=== PATIENT | male | born 1965 | race Caucasian/White ===

== ENCOUNTER 2019-09-22 06:00 | Outpatient (RCR) | payer SELFPAY | END 2019-10-22 00:01 | LOC: SPT 06:00 | PROVIDERS: Visit Provider Orthopaedic Surgery Sports Medicine | DX: Z47.89 Encounter for other orthopedic aftercare (principal) | CPT/HCPCS: 97110 ×3 ==

== ENCOUNTER 2019-10-23 06:00 | Outpatient (RCR) | payer SELFPAY | END 2019-11-22 23:59 | disposition home or self-care (01) | LOC: SPT 06:00 | PROVIDERS: Visit Provider Orthopaedic Surgery Sports Medicine | DX: Z47.89 Encounter for other orthopedic aftercare (principal) | CPT/HCPCS: 97110 ==

== ENCOUNTER 2019-11-23 06:00 | Outpatient (RCR) | payer SELFPAY | END 2019-12-13 09:44 | disposition home or self-care (01) | LOC: SPT 06:00 | PROVIDERS: Visit Provider Orthopaedic Surgery Sports Medicine | DX: M25.611 Stiffness of right shoulder, not elsewhere classified (principal); M25.511 Pain in right shoulder; S46.001D Unspecified injury of muscle(s) and tendon(s) of the rotator cuff of right shoulder, subsequent encounter; X58.XXXD Exposure to other specified factors, subsequent encounter | CPT/HCPCS: 97110 ==

== ENCOUNTER 2021-02-16 08:56 | Outpatient (CLI) | payer OTHER, SELFPAY ==
--- NOTE | 2021-02-16 09:30 | MR_ITS ---
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 TECHNIQUE: Sagittal and axial multisequence imaging is submitted. Mild thoracolumbar scoliosis. Slight increase in thoracic kyphosis. T9 hemangioma. Posterior lumbar alignment is normal. Fat replacement along the L4 and L5 endplates. Mild disc space narrowing throughout with small endplate osteophytes. Conus terminates normally at T12-L1. L1-L2: Mild osteophytic ridging and annular disc bulging. Shallow LEFT paracentral disc protrusion wi th annular fissure causing mild encroachment upon the subarticular recess. No significant stenosis. L2-L3: Mild annular disc bulging and osteophytic ridging. Shallow central disc protrusion encroaching upon the ventral thecal sac. There is mild central canal, bilateral subarticular recess and foramina l stenosis. L3-L4: Moderate annular disc bulging and osteophytic ridging with marked ligamentum flavum arthritis. Facet joints demonstrate moderate atherosclerosis. There is encroachment into the thecal sac. Modera te central, bilateral subarticular recess and mild bilateral foraminal stenosis. L4-L5: Severe annular disc bulging with osteophytic ridging. There is a large disc protrusion LEFT pa racentral extending into the LEFT foramen causing significant posterior displacement and deformity of the thecal sac and the nerve roots. Nerve roots are obliterated and poorly visualized due to signifi cant disc disease. There is also moderate facet joint arthritis. Severe central, LEFT lateral recess and severe bilateral subarticular recess stenosis and mild bilateral foraminal stenosis. L5-S1: Mild broad-based disc bulging. Near contact on the S1 nerve roots. MR/MR lumbar spine wo con* [id number] IMPRESSION: 1. Severe central, LEFT lateral recess and bilateral subarticular recess steno sis at L4-5. There is a large LEFT paracentral disc protrusion extending into t he lateral recess and foramen. Significant deformity and displacement of the th ecal sac and the LEFT L5 nerve root. 2. Moderate central, bilateral subarticular recess and mild foraminal stenosis at L3-4. 3. Mild central, bilateral subarticular recess and foraminal stenosis at L2-3.
== END 2021-02-16 08:57 | disposition home or self-care (01) ==
PROVIDERS: PCP Nurse Practitioner Family; Visit Provider Nurse Practitioner Family
DX: M54.42 Lumbago with sciatica, left side (principal); M48.061 Spinal stenosis, lumbar region without neurogenic claudication; M51.26 Other intervertebral disc displacement, lumbar region
CPT/HCPCS: 72148

== ENCOUNTER 2022-03-02 13:08 | Outpatient (CLI) | payer OTHER, SELFPAY ==
--- NOTE | 2022-03-02 13:46 | MR_ITS ---
WS: [id number] MRI HEAD WITHOUT CONTRAST TECHNIQUE: Sagittal T1, T2 axial, T2 axial FLAIR, axial and coronal T1 images, axial susceptibility w eighted imaging, axial diffusion weighted images, and coronal T2 images were obtained. CLINICAL INFORMATION: NUMBNESS OF L HAND COMPARISON: None. FINDINGS: No evidence restricted diffusion to suggest acute ischemia. Ventricular system and basal cisterns are patent. Mild small vessel changes. No significant parenchymal volume loss. Normal posterior fossa. N ormal vascular flow voids at the skull base. No extra axial fluid collections. No evidence of mass or mass effect. Small retention cyst RIGHT maxillary sinus. Mastoid air cells are well aerated. Visualized orbits are normal. 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 Small amount of surrounding gliosis. No mass effect. No hemosiderin on susceptibly weighted images. Normal optic chiasm and pituitary infundibulum. Tempor al lobes and hippocampal formations are normal in appearance. MR/MR head wo con* [id number] IMPRESSION: 1. No evidence of restricted diffusion to suggest acute ischemia. 2. Minimal small vessel changes. No significant parenchymal line loss. 3. 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 Small amount of surrounding gliosis. 4. Small retention cyst RIGHT maxillary sinus. 5. No other significant findings.
== END 2022-03-02 13:09 | disposition home or self-care (01) ==
LOC: RAD 13:12
PROVIDERS: PCP Nurse Practitioner Family; Visit Provider Nurse Practitioner Family
DX: R20.0 Anesthesia of skin (principal); J34.1 Cyst and mucocele of nose and nasal sinus; G93.0 Cerebral cysts
CPT/HCPCS: 70551

== ENCOUNTER 2022-06-16 08:22 | Outpatient (CLI) | payer OTHER, SELFPAY ==
--- NOTE | 2022-06-16 09:15 | MR_ITS ---
WS: [id number] MRA ANGIOGRAPHY [place] OF [place] HISTORY: R29.90 - Unspecified symptoms and signs involving the nervous system. COMPARISON: None available. TECHNIQUE: 3-D MR angiography is performed of the [place] of [place]. All images are reviewed including source images. Distal vertebral and basilar arteries are intact with no significant stenosis or plaque. Posterior ce rebral arteries are normal course and caliber. Posterior communicating arteries are very small calibe r and difficult to visualize. Hypoplastic posterior communicating arteries is a normal variant. Intracranial portion of the internal carotid arteries are normal course and caliber. No significant a therosclerosis, stenosis or aneurysm identified. Middle and anterior cerebral arteries are both paten t with no significant disease. Anterior communicating artery is also normal. Cystic lesion in the LEFT basal ganglia is reidentified. Described also on the prior MRI from 03/02/20. MR/MR angio head wo con [id number] IMPRESSION: Normal MRA te[place] of [place].
== END 2022-06-16 08:23 | disposition home or self-care (01) ==
PROVIDERS: PCP Nurse Practitioner Family; Visit Provider Specialist
DX: R29.90 Unspecified symptoms and signs involving the nervous system (principal)
CPT/HCPCS: 70544

== ENCOUNTER 2025-07-13 05:32 | Emergency (ER) | payer MEDICARE, SELFPAY ==
--- NOTE | 2025-07-13 05:37 | ECG_ITS ---
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 Measurements Intervals [place] Rate: 88 P: 86 CT: 186 QRS: 48 QRSD: 84 T: 60 QT: 339 QTc: 411 Interpretive Statements SINUS RHYTHM WITH OCCASIONAL SUPRAVENTRICULAR PREMATURE COMPLEXES NONSPECIFIC T-WAVE ABNORMALITY No previous ECG available for comparison Electronically Signed On 07-13-2025 17:44:53 CDT by Genoveva Main M.D. [email or web address]
--- OUTSIDE RECORDS SUMMARY | 2025-07-13 05:38 | XMS_ITS | Encounter Summary ---
Author Organization [facility] Address [address] [place] [address] Care Team Providers Care Track Laying Equipment Operator Name Role Phone Unavailable Primary Care Provider Unavailabl e Encounter Details Date Type Department Care Team (Latest Contact Info) Description 05/07/1998 Outpatient Historical [facility] Ron Caballero MD NO ADDRESS ON FILE Closed fracture of metacarpal bone(s), site unspecified (Primary Dx) Social History Tobacco Use Types Packs/Day Years Used Date Smoking Tobacco: Never Assessed Sex and Gender Information Value Date Recorded Sex Assigned at Not on file 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
--- OUTSIDE RECORDS SUMMARY | 2025-07-13 05:38 | XMS_ITS | Encounter Summary ---
Author Organization [facility] Address [address] [place] [address] Care Team Providers Care Labor Service Representative Name Role Phone Unavailable Primary Care Provider Unavailabl e Encounter Details Date Type Department Care Team (Latest Contact Info) Description 06/04/1998 Outpatient Historical [facility] Ron Caballero MD NO ADDRESS ON FILE Closed fracture of metatarsal bone(s) (Primary Dx) Social History Tobacco Use Types Packs/Day Years Used Date Smoking Tobacco: Never Assessed Sex and Gender Information Value Date Recorded Sex Assigned at Not on file 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
--- OUTSIDE RECORDS SUMMARY | 2025-07-13 05:38 | XMS_ITS | Patient Health Record ---
Author Organization [facility] Address [address] [place] [address] Care Team Providers Care Grease Buffer Name Role Phone Monica Billy APRN Primary Care Provider Brendan Akbar Unavailable [phone] Allergies Allergen (clinical drug ingredient) Drug/Non Drug Allergy documented on EMR Reaction Allergy Type Onset Date Status Enviro-Stress Unknown Drug Allergy Act demetria Reason For Referral Reason Eval and Treat Diagnosis 1 Chronic pain (G89.29 ) Referring Provider First Name Monica Referring Provider Last Name Wenceslao Referring Provider Speciality Family Med icine Referred Organization [facility] Referred Provider Trace Burgos Referred Address [address] [facility] [place],[address],[place] Referred Provider Specialty Intervention al Pain Medicine General Notes Maria L Sni 04:34:19 PM CDT > atc pt, lvmMerrick Twyla A 05/22/2025 04:50:50 PM CDT > mailing npp, scheduled pt Referral Priority Routine Medications Medication SIG (Take, Route, Frequency, Duration) Notes Start Date End Date Status oxyCODONE-Acetaminophen 10-325 MG Tablet 2 tablet as needed Orally every 6 hrs; Duration: 14 days 07/09/2021 Active Methocarbamol 750 MG Tablet 1 tablet Ora lly every 8 hrs; Duration: 14 days 07/09/2021 Active Montelukast Sodium A ctive Citalopram Hydrobromide Active Allopurinol Active Social History Tobacco Use: Social History Observation Description Date Details (start date - stop date) Unknown Social History Depression Screening Social Info Question Answer Notes PHQ-9 Little interest or pleasure in doing thin gs Not at all Feeling down, depressed, or hopeless Not at all Trouble falling or staying asleep, or sleeping t oo much Not at all Feeling tired or having little energy Not at all Poor appetite or overeating Not at all Feeling bad about yourself, or that you are a failure, or have let yourself or your family down Not at all Trouble concentrating on thi ngs, such as reading the newspaper or watching television Not at all Moving or speaking so slowly that other people could have noticed. Or the opposite ? being so fidgety or restless that you have been moving around a lot more than usual Not at all Thoughts that you would be b austyn off , or of hurting yourself in some way Not at all Total Score 0 Drugs/Alcohol: Social Info Question Answer Notes Alcohol Screen (Audit-C) Did you have a drink containing alcohol in the past year? No Points 0 Interpretation Negative Drugs Have you used drugs other than those for medical reasons in the past 12 months? No Tobacco Use: Social Info Question Answer Notes xTobacco Use/Smoking Are you a Uses tobacco in othe r forms Additional Findings: Tobacco User Chews tobacco Problems Problem Type SNOMED Code ICD Code Onset Dates Problem Status W/U Status Risk Notes Problem Degeneration of lumbar intervertebral disc (48398323) Degenerative disc disease, lumbar (M51.36) Active confirmed Problem Chronic pain (20441408) Chronic pain (G89.29) Active confirmed Problem Blood chemistry abnormal (261422275) Low testosterone in male (R79.89) Active confirmed Problem Postoperative care (regime/therapy) (124385705) Aftercare following surgery (Z48.89) Active confirmed Problem Displacement of lumbar intervertebral disc without myelopathy (09667414) Herniated nucleus pulposus, lumbar (M51.26) Active confirmed Plan Of Treatment Pending Test Test Name Order Date Prothrombin Time 86128 06/10/2021 Prothrombin Time 78898 06/23/2021 ABORh 96679, 03867 06/23/2021 ABORh 67000, 90478 06/10/2021 Antibody Screen 90546 06/10/2021 Antibody Screen 88814 06/23/2021 Basic Metabolic Panel (BMP) 58968 2020 Basic Metabolic Panel (BMP) 65212 2020 Basic Metabolic Panel (BMP) 81267 2020 CBC w\ Auto Diff 87514 06/10/2021 CBC w\ Auto Diff 86512 06/23/2021 Partial Thromboplastin Time 41642 2020 Partial Thromboplastin Time 04286 2020 CBC Reflex Man Diff 98741, 01270 021 Chest PA/Lat-68230 06/23/2021 Chest PA/Lat-09758 06/10/2021 Lumbosacral Spine AP/Lat-62702 2 Lumbosacral Spine AP/Lat-96066 1 Lumbosacral Spine AP/Lat-04417 1 Lumbosacral Spine AP/Lat-86890 1 Lumbosacral Spine AP/Lat-86867 2 Lumbosacral Spine AP/Lat-96566 1 Lumbosacral Spine AP/Lat-92664 1 Lumbosacral Spine AP/Lat-04382 1 Lumbosacral Spine AP/Lat-47912 2 Lumbosacral Spine AP/Lat-70107 2 XR Outside CD 01/25/2021 XR Outside CD 01/25/2021 Electrocardiogram 12 Lead Tracing-94825 06/10/2021 WBC Auto Diff--89520 06/25/2021 BB ABORH-86652,77065 06/23/2021 zzzFluoro >1h4 06/25/2021 COVID 19 PCR--65049 06/23/2021 COVID 19 PCR--46389 06/10/2021 zzzMRI Outside CD 02/16/2021 zzzMRI Outside CD 02/16/2021 Next Appt Details Provider Name:Arlen Valiente, 08/12/2025 02:00:00 PM, [address] [place], [address], Insurance Providers Payer Name Payer Address Payer Phone Subscriber Number Group Number Insured Name Patient Relationship to Insured Coverage Start Date Coverage End Date [employer] [address] [address] [place] [address] [id number] Sasha Harvey Self - patient is the insured [facility] Medicare Replacement [address] [address] [place] [address] [id number] Sasha Harvey Self - patient is the insured Medical (General) History Medical History History ICD Code asthma Surgical History Surgery Date(Month/Year) TLIF 06/2021 shoulder surgery 07/2019 5 knee surgeries
--- OUTSIDE RECORDS SUMMARY | 2025-07-13 05:38 | XMS_ITS | Encounter Summary ---
Author Organization [facility] Address [address] [place] [address] Care Team Providers Care Slitter Helper Name Role Phone Unavailable Primary Care Provider Unavailabl e Encounter Details Date Type Department Care Team (Latest Contact Info) Description 05/12/1998 Outpatient Historical [facility] Ron Caballero MD NO ADDRESS ON FILE Closed fracture of metacarpal bone(s), site unspecified (Primary Dx) Social History Tobacco Use Types Packs/Day Years Used Date Smoking Tobacco: Never Assessed Sex and Gender Information Value Date Recorded Sex Assigned at Not on file 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
--- OUTSIDE RECORDS SUMMARY | 2025-07-13 05:38 | XMS_ITS | Clinical Summary ---
Author Organization [facility] Address [address] [place] [address] Care Team Providers Care Clinical Data Management Manager Name Role Phone Unavailable Primary Care Provider Unavailabl e Allergies No known active allergies Medications allopurinol (ZYLOPRIM) 150 mg Tablet Take by mouth. Active citalopram (CeleXA) 10 mg tablet Take 10 mg by mouth daily. Active cetirizine (ZyrTEC) 5 mg tablet Take 5 mg by mouth daily. 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 Gender Identity Not on file Sexual Orientation Not on file Last Filed Vital Signs Vital Sign Reading Time Taken Comments Blood Pressure 120/82 01/27/2018 1:12 PM CDT Pulse 78 01/27/2018 1:12 PM CDT Temperature 36.3 C (97.3 F) 01/27/2018 1:12 PM CDT Respiratory Rate 20 01/27/2018 1:12 PM CDT Oxygen Saturation 92% 01/27/2018 1:12 PM CDT Inhaled Oxygen Concentration - - Weight 114.8 kg (253 lb) 01/27/2018 1:12 PM CDT Height 154.9 cm (5' 1 ) 01/27/2018 1:12 PM CDT Body Mass Index 47.8 01/27/2018 1:12 PM CDT Plan of Treatment Health Maintenance Due Date Last Done Comments DTAP/TDAP/TD VACCINES (1 - Tdap) 1982 COLORECTAL SCREENING 2008 Colorectal Cancer Screening 2008 FIT-DNA Q 3 years 2008 FIT/FOBT Q 1 year 2008 Flex Sig/CT Colonography Q 5 years 2008 ZOSTER VACCINE (1 of 2) 2013 INFLUENZA VACCINE (#1) 2025 RSV VACCINE (60+ or ) (1 - 1-dose 75+ series) 2038 Insurance
--- OUTSIDE RECORDS SUMMARY | 2025-07-13 05:38 | XMS_ITS | Patient Health Record ---
Author Organization [employer] [facility] Address [address] [place] [address] Care Team Providers Care Shank Burnisher Name Role Phone Monica Billy APRN Primary Care Provider Unavaila ble Allergies Allergen (clinical drug ingredient) Drug/Non Drug Allergy documented on EMR Reaction Allergy Type Onset Date Status Enviro-Stress Unknown Drug Allergy Act demetria Reason For Referral No Information Medications Medication SIG (Take, Route, Frequency, Duration) Notes Start Date End Date Status oxyCODONE-Acetaminophe n 10-325 MG 2 tablet as needed Orally every 6 hrs; Duration: 14 days 07/09/2021 Active Citalopram Hydrobromide *Pick strength-form from Medispan for eRX* Active Montelukast Sodium *Pick strength-form from Medispan for eRX* Active Allopurinol *Pick strength-form from Medispan for eRX* Active Methocarbamol 750 MG 1 tablet Orally every 8 hrs; Duration: 14 days 07/09/2021 Active Problems Problem Type SNOMED Code ICD Code Onset Dates Problem Status W/U Status Risk Notes Problem Postoperative care (regime/therapy) (866945957) Aftercare following surgery (Z48.89) Active confirmed Problem Degeneration of lumbar intervertebral disc (76913689) Degenerative disc disease, lumbar (M51.36) Active confirmed Problem Displacement of lumbar intervertebral disc without myelopathy (05569108) Herniated nucleus pulposus, lumbar (M51.26) Active confirmed Problem Blood chemistry abnormal (517842158) Low testosterone in male (R79.89) Active confirmed Plan Of Treatment Pending Test Test Name Order Date Prothrombin Time 24050 06/23/2021 Prothrombin Time 93147 06/10/2021 ABORh 43828, 53696 06/10/2021 ABORh 40472, 73198 06/23/2021 Antibody Screen 73834 06/23/2021 Antibody Screen 68851 06/10/2021 Basic Metabolic Panel 33152 06/10/2021 Basic Metabolic Panel 54345 06/23/2021 Basic Metabolic Panel 19366 06/25/2021 CBC w\ Auto Diff 53183 06/23/2021 CBC w\ Auto Diff 69250 06/10/2021 Partial Thromboplastin Time 61324 2020 Partial Thromboplastin Time 11077 2020 CBC Reflex Man Diff 44661, 04935 021 WBC Auto Diff--33750 06/25/2021 BB ABORH-65763,94555 06/23/2021 COVID 19 PCR--69679 06/23/2021 COVID 19 PCR--84309 06/10/2021 Chest PA/Lat-30605 06/10/2021 Chest PA/Lat-44810 06/23/2021 Lumbosacral Spine AP/Lat-39102 2 Lumbosacral Spine AP/Lat-90950 2 Lumbosacral Spine AP/Lat-46475 1 Lumbosacral Spine AP/Lat-85611 1 Lumbosacral Spine AP/Lat-83021 1 Lumbosacral Spine AP/Lat-50472 2 Lumbosacral Spine AP/Lat-07978 1 Lumbosacral Spine AP/Lat-85734 1 Lumbosacral Spine AP/Lat-01570 1 Lumbosacral Spine AP/Lat-32918 2 XR Outside CD 01/25/2021 XR Outside CD 01/25/2021 Electrocardiogram 12 Lead Tracing-61929 06/10/2021 zzzFluoro >1h4 06/25/2021 zzzMRI Outside CD 02/16/2021 zzzMRI Outside CD 02/16/2021 Insurance Providers Payer Name Payer Address Payer Phone Subscriber Number Group Number Insured Name Patient Relationship to Insured Coverage Start Date Coverage End Date [facility] [address] [address] [place], [place] [id number] Sahsa Harvey Self - patient is the insured Medical (General) History Medical History History ICD Code asthma Surgical History Surgery Date(Month/Year) 5 knee surgeries shoulder surgery 07/2019 TLIF 06/2021
[2025-07-13 05:42] VITALS: BP 139/117; PULSE 90; RESP 22; TEMP 36.9; O2SAT 95; BMI 38.7
--- NOTE | 2025-07-13 05:42 | XRR_ITS ---
PROCEDURE INFORMATION: Exam: XR Chest Exam date and time: 07/13/2025 5:42 AM Age: 59 years old Clinical indication: Chest pressure; C/O chest pain; Additional info: Cp TECHNIQUE: Imaging protocol: Radiologic exam of the chest. Views: 1 view. COMPARISON: CR XR shoulder RT min 2V* [id number] 06/25/2019 12:35 PM FINDINGS: Lungs: Mild linear atelectasis in the right perihilar region. Pleural spaces: Unremarkable. No pleural effusion. No pneumothorax. Heart/Mediastinum: See Vasculature finding. Vasculature: Borderline cardiomegaly and uncoiling of the thoracic aorta. Bones/joints: Unremarkable. XR/XR chest 1V portable [id number] IMPRESSION: Atelectatic changes on the right side.
[2025-07-13 05:54] LABS: Hematocrit 45.4 % (37-53); Hemoglobin 15.70 g/dL (11.27-16.99); Mean Corpuscular HGB Conc 34.6 g/dL (30-55); Mean Corpuscular Hemoglobin 30.8 pg (27-33); Mean Corpuscular Volume 89.2 fl (82-101); Nucleated Red Blood Cells % 0 %; Platelet Count 228 10^3/cmm (157-399); Red Blood Count 5.09 10^6/uL (3.85-5.65); White Blood Count 8.48 10^3/uL (3.29-11.43)
--- NOTE | 2025-07-13 06:03 | W.ED.CHESTPA ---
HPI - Chest Pain General: Chief Complaint: Chest Pain Stated Complaint: cp sob jaw pain Time Seen by Provider: 07/13/25 05:42 Source: patient Mode of arrival: ambulatory Limitations: no limitations History of Present Illness: 59-year-old male who states that since around midnight been having some epigastric pain. States a burning pain that goes up into his chest. States has some jaw pain as well. States it is worse with palpation as well. States its sharp in nature rates it 6 out of 10 currently denies any shortness of breath denies any nausea or diaphoresis denies any worse improving factors he denies any vomiting diarrhea Associated symptoms: Reports abdominal pain; Deny dyspnea, fever(s), nausea or vomiting Related Data Home Medications ?Medication ?Instructions ?Recorded ?Confirmed allopurinol 300 mg tablet 300 mg PO DAILY 05/23/22 07/13/25 montelukast 10 mg tablet 10 mg PO DAILY 05/23/22 07/13/25 albuterol sulfate 90 mcg/actuation 2 puff inhalation Q6H PRN 07/13/25 07/13/25 aerosol inhaler Shortness Of Breath budesonide-formoterol HFA 160 2 puff inhalation BID 07/13/25 07/13/25 mcg-4.5 mcg/actuation aerosol inhaler (Symbicort) ibuprofen 600 mg tablet 600 mg PO TID PRN Pain 07/13/25 07/13/25 omeprazole 20 mg capsule,delayed 20 mg PO DAILY PRN Acid Reflux 07/13/25 07/13/25 release trazodone 100 mg tablet 100 mg PO BEDTIME 07/13/25 07/13/25 Previous Rx's ?Medication ?Instructions ?Recorded pantoprazole 40 mg tablet,delayed 40 mg PO DAILY #60 tabs 07/13/25 release (Protonix) Allergies Allergy/AdvReac Type Severity Reaction Status Date / Time No Known Allergies Allergy Unverified 03/26/24 16:16 Review of Systems Const: Denies: fever(s), chills, body aches or change in appetite ENMT: Denies: throat pain or dental pain Card: Reports: chest pain Resp: Denies: dyspnea GI: Reports: abdominal pain; Denies: nausea, vomiting or diarrhea Musc: Denies: neck pain or back pain Skin/Breast: Denies: rash Neuro: Denies: headache(s) PFSH ED PFSH: Family History Father Hypertension Social History Smoking and tobacco/nicotine status: never used tobacco/nicotine Alcohol intake: never Substance/Drug Use: never Physical Exam Const: COMMON NORMALS: no acute distress, patient oriented x3 and healthy appearing HENMT: COMMON NORMALS: normocephalic and atraumatic HEAD & SCALP: normocephalic and atraumatic Eye: COMMON NORMALS: conjunctivae normal CONJUNCTIVA: Yes conjunctivae normal Neck/C-Spine: COMMON NORMALS: full ROM and supple Chest: COMMONS NORMALS: normal inspection of the chest and normal palpation of entire chest wall Resp: COMMON NORMALS: normal respiratory effort, No retractions, No use of accessory muscles and clear to auscultation bilaterally AUSCULTATION: clear to auscultation bilaterally Cardio: COMMON NORMALS: regular rate, regular rhythm and No murmurs present (Cardio) RATE: regular rate RHYTHM: regular rhythm GI: COMMON NORMALS: Normal to inspection, nondistended, normoactive bowel sounds present, Soft to palpation, non-tender and no masses PALPATION: Yes Soft to palpation Extremity: COMMON NORMALS: normal to inspection and full ROM Neuro: COMMON NORMALS: patient oriented x3, moves all extremities and no focal motor deficits Psych: COMMON NORMALS: mental status grossly normal, Normal thought process present and cooperative THOUGHT PROCESS: Normal thought process present Skin: COMMON NORMALS: no rashes or lesions noted and no wounds GENERAL SKIN EXAM: no rashes or lesions noted Course Vital Signs: Vital signs: Vital Signs Temperature 98.4 F 07/13/25 05:42 Pulse Rate 79 07/13/25 07:30 Respiratory Rate 17 07/13/25 07:30 Blood Pressure 151/103 07/13/25 07:30 Pulse Oximetry 94 07/13/25 07:30 Oxygen Delivery Me thod Room Air 07/13/25 06:19 MDM - Chest Pain Medical Decision Making Patient presents here with chest pain along with abdominal pain is more abdominal pain than chest pain. GI cocktail resolved his pain he is likely having gastritis with reflux. His abdominal exam is benign no signs of cholecystitis or appendicitis blood work normal including white count and troponins. He has no signs of ACS pulmonary emboli or dissection. He stable for discharge we will start him on Protonix he is to follow-up with his PCP and return if worsening I went over his labs EKG and imaging with him he understands agrees to plan Medical Records I reviewed the patient's medical records. Lab Data I reviewed the patient's lab results. 07/13/25 05:43 07/13/25 05:43 Radiology Impressions Chest X-Ray 07/13/25 05:42 IMPRESSION: Atelectatic changes on the right side. Laboratory Results WBC 8.48 10^3/uL (3.29-11.43) 07/13/25 05:43 RBC 5.09 10^6/uL (3.85-5.65) 07/13/25 05:43 Hgb 15.70 g/dL (11.27-16.99) 07/13/25 05:43 Hct 45.4 % (37-53) 07/13/25 05:43 MCV 89.2 fl (82-101) 07/13/25 05:43 MCH 30.8 pg (27-33) 07/13/25 05:43 MCHC 34.6 g/dL (30-55) 07/13/25 05:43 RDW 13.1 % (12.1-15.1) 07/13/25 05:43 Plt Count 228 10^3/cmm (157-399) 07/13/25 05:43 MPV 10.3 fL (7.4-10.4) 07/13/25 05:43 Neut % (Auto) 67.0 % 07/13/25 05:43 Lymph % (Auto) 23.1 % 07/13/25 05:43 Treasure % (Auto) 7.3 % 07/13/25 05:43 Eos % (Auto) 1.7 % 07/13/25 05:43 Baso % (Auto) 0.5 % 07/13/25 05:43 Neut # (Auto) 5.69 10^3/uL (1.8-7.7) 07/13/25 05:43 Lymph # (Auto) 2.0 10^3/uL (0.8-4.8) 07/13/25 05:43 Treasure # (Auto) 0.6 10^3/uL (0.2-0.9) 07/13/25 05:43 Eos # (Auto) 0.1 10^3/uL (0.0-0.8) 07/13/25 05:43 Baso # (Auto) 0.0 10^3/uL (0.0-0.1) 07/13/25 05:43 Nucleated RBC % (auto) 0 % 07/13/25 05:43 Nucleated RBCs # 0.0 /100WBC 07/13/25 05:43 Sodium 143 mmol/L (136-145) 07/13/25 05:43 Potassium 4.1 mmol/L (3.5-5.1) 07/13/25 05:43 Chloride 106 mmol/L (98-107) 07/13/25 05:43 Carbon Dioxide 23 mmol/L (22-29) 07/13/25 05:43 Anion Gap 18.1 (5-19) 07/13/25 05:43 BUN 9 mg/dL (8-23) 07/13/25 05:43 Creatinine 0.7 mg/dL (0.7-1.2) 07/13/25 05:43 GFR Calculation 114.6 mL/min (90-130) 07/13/25 05:43 Glucose 141 mg/dL (65-115) H 07/13/25 05:43 Calculated Osmolality 297 mOsm/kg (285-295) H 07/13/25 05:43 Calcium 9.6 mg/dL (8.5-10.5) 07/13/25 05:43 Total Bilirubin 0.2 mg/dL (0.15-1.2) 07/13/25 05:43 AST 19 U/L (0-40) 07/13/25 05:43 ALT 30 U/L (0-41) 07/13/25 05:43 Alkaline Phosphatase 99 U/L (40-130) 07/13/25 05:43 Troponin T Baseline 11 ng/L (0-15) 07/13/25 05:43 Troponin T 120 Minute 10.19 ng/L (0-15) 07/13/25 07:42 Delta Troponin T -0.81 ABS# (0-10) L 07/13/25 07:42 Total Protein 7.4 g/dL (6.6-8.7) 07/13/25 05:43 Albumin 4.7 g/dL (3.5-5.2) 07/13/25 05:43 Globulin 2.7 g/dL (1.3-4.6) 07/13/25 05:43 Lipase 38 U/L (13-60) 07/13/25 05:43 All radiology interpretation(s) finalized by discharge EKG Data EKG 1: I personally reviewed and interpreted this EKG as follows: EKG interpretation date: 07/13/25 EKG interpretation time: 05:37 Interpretation: nsr hr [address] elevation qrs 84 qtc 384 EKG 2: I personally reviewed and interpreted this EKG as follows: EKG interpretation date: 07/13/25 EKG interpretation time: 07:41 Interpretation: nsr hr [address] elevation qrs 89 qtc 388 Clincial Decision Support The following clinical decision support tools were used to aid in care of the patient HEART Score -> History: Slightly Suspicous, EKG: Normal, Age: 45-64 yrs, Risk Factors: 1 or 2 Risk Factors, Troponin: Baseline Trop <16 ng/L. Resulting HEART Score: 2. Discharge Plan Discharge Patient Disposition: Home Clinical Impression: Abdominal pain, Chest pain Condition: Stable Prescriptions: New pantoprazole [Protonix] 40 mg tablet,delayed release (DR/EC) 40 mg PO DAILY Qty: 60 0RF No Action montelukast 10 mg tablet 10 mg PO DAILY allopurinol 300 mg tablet 300 mg PO DAILY omeprazole 20 mg capsule,delayed release(DR/EC) 20 mg PO DAILY PRN (Reason: Acid Reflux) ibuprofen 600 mg tablet 600 mg PO TID PRN (Reason: Pain) albuterol sulfate 90 mcg/actuation HFA aerosol inhaler 2 puff INHALATION Q6H PRN (Reason: Shortness Of Breath) budesonide-formoterol [Symbicort] 160-4.5 mcg/actuation HFA aerosol inhaler 2 puff INHALATION BID trazodone 100 mg tablet 100 mg PO BEDTIME Discharge Orders: Discharge ED (Routine); Ordered 07/13/25 Ordered By: Radha Kirk Referrals: Monica Billy, SKIFF OPERATOR [Primary Care Provider, Unknown] - 4-7 days Discharge Diet: Advance as tolerated Discharge Activity: Resume usual activity Patient Instructions: Abdominal Pain (ED) Print Language: Thai Coding Level of Care Code 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
--- NOTE | 2025-07-13 06:04 | CTR_ITS ---
PROCEDURE INFORMATION: Exam: CT Abdomen And Pelvis With Contrast Exam date and time: 07/13/2025 6:23 AM Age: 59 years old Clinical indication: Abdominal pain; Prior surgery; Surgery date: 6+ months; Surgery type: Lumar fusion; C/O epigastric pain; Additional info: Abd pain TECHNIQUE: Imaging protocol: Computed tomography of the abdomen and pelvis with contrast. Radiation optimization: All CT scans at this facility use at least one of these dose optimization techniques: automated exposure control; mA and/or kV adjustment per patient size (includes targeted exams where dose is matched to clinical indication); or iterative reconstruction. Contrast material: OMNI 350; Contrast volume: 100 ml; Contrast route: INTRAVENOUS (IV); COMPARISON: CR XR lumbar spine 2-3V* [id number] 05/09/2024 3:13 PM RADIATION DOSE METRICS: Total DLP (mGy-cm): 1125.93 FINDINGS: Lungs: Slight atelectasis in the lingula and right middle lobe. Esophagus: Incompletely imaged is thickening of the wall of the distal esophagus. Esophagitis may be present. Correlate clinically. Liver: Hepatic steatosis. Gallbladder and biliary ducts: Normal. No calcified stones. No ductal dilation. Pancreas: Normal. No ductal dilation. Spleen: Normal. No splenomegaly. Adrenal glands: Normal. No mass. Kidneys and ureters: Normal. No hydronephrosis. Stomach and bowel: Diverticulosis without evidence of diverticulitis. Appendix: No evidence of appendicitis. Intraperitoneal space: Unremarkable. No free air. No significant fluid collection. Vasculature: Unremarkable. No abdominal aortic aneurysm. Lymph nodes: Unremarkable. No enlarged lymph nodes. Urinary bladder: Unremarkable as visualized. Reproductive: Unremarkable as visualized. Bones/joints: Posterior lower lumbar fusion. Soft tissues: Unremarkable. CT/CT abdomen pelvis w con* [id number] IMPRESSION: Likely distal esophagitis, incompletely imaged.
[2025-07-13 06:09] LABS: Troponin(5th) Baseline 11 ng/L (0-15)
[2025-07-13 06:12] LABS: Alanine Aminotransferase 30 U/L (0-41); Albumin Level 4.7 g/dL (3.5-5.2); Alkaline Phosphatase 99 U/L (40-130); Anion Gap 18.1 (5-19); Aspartate Amino Transferase 19 U/L (0-40); Blood Urea Nitrogen 9 mg/dL (8-23); Calcium 9.6 mg/dL (8.5-10.5); Carbon Dioxide 23 mmol/L (22-29); Chloride 106 mmol/L (98-107); Creatinine Clr Calc Pharmacy 145.4415; Globulin 2.7 g/dL (1.3-4.6); Glucose 141 mg/dL (65-115); Lipase 38 U/L (13-60); Osmolality Calculated 297 mOsm/kg (285-295); Potassium 4.1 mmol/L (3.5-5.1); Sodium 143 mmol/L (136-145); Total Protein 7.4 g/dL (6.6-8.7)
[2025-07-13 06:19] VITALS: BP 180/123; PULSE 82; RESP 18; O2SAT 92
[2025-07-13] MEDS: iohexol 350 mg/mL 500 mL Btl (per mL) IV (06:28)
[2025-07-13] MEDS: hyDRALAzine 20 mg/mL INJ 1 mL 10 MG IVP (06:54)
[2025-07-13] MEDS: lidocaine 2% viscous 15 ML, aluminum-mag hydrox-simethicon 30 ML, sucralfate oral liq 1 GM PO (06:54)
[2025-07-13 07:00] VITALS: BP 173/100; PULSE 84; RESP 17; O2SAT 94
[2025-07-13 07:30] VITALS: BP 151/103; PULSE 79; RESP 17; O2SAT 94
--- NOTE | 2025-07-13 07:41 | ECG_ITS ---
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 Measurements Intervals Superior Rate: 79 P: 71 WA: 183 QRS: 29 QRSD: 89 T: 9 QT: 353 QTc: 406 Interpretive Statements SINUS RHYTHM NONSPECIFIC T-WAVE ABNORMALITY Compared to ECG 07/13/2025 05:37:07 No significant changes Electronically Signed On 07-13-2025 17:51:23 CDT by Genoveva Main M.D. [email or web address]
--- NOTE | 2025-07-13 07:44 | PC.PHAR ---
Pt stopped taking Rosuvastatin 10mg at bedtime last fill 12/10/24 90ds.
[2025-07-13 08:07] LABS: Troponin 5 2HR 10.19 ng/L (0-15)
[2025-07-13 08:10] LABS: Troponin 5 2HR Delta -0.81 ABS# (0-10)
== END 2025-07-13 08:31 | disposition home or self-care (01) ==
PROVIDERS: Emergency Provider Emergency Medicine; PCP Nurse Practitioner Family
DX: R10.9 Unspecified abdominal pain (principal); R07.9 Chest pain, unspecified
CPT/HCPCS: 36415; 71045; 74177; 80053; 83690; 84484; 85025; 93005; 96374; 99285; J0360; J9999

== ENCOUNTER 2025-09-10 08:35 | Outpatient (CLI) | payer MEDICARE, SELFPAY ==
--- NOTE | 2025-09-10 08:40 | MR_ITS ---
WS: [id number] MRI LUMBAR SPINE NONCONTRAST HISTORY: LUMBOSACRAL RADICULOPATHY/POST LAMINECTOMY SYNDROME COMPARISON: 02/16/2021 TECHNIQUE: Sagittal and axial multisequence imaging is submitted. Posterior lumbar spine fusion at L4-5 is new since 02/16/2021. Interbody spacer at L4-5. Normal lumbar alignment with no compression fractures or marrow edema. Disc spaces are narrowed and desiccated. Large osteophytes at all levels. Conus terminates normally at L1-2 disc level. L1-L2: Diffuse disc bulging with osteophytic ridging. Small annular fissures in the central disc. Mild central, subarticular recess and bilateral foraminal stenosis. L2-L3: Diffuse osteophytic ridging and disc bulging. Central disc protrusion. Moderate ligamentum flavum and facet arthritis. Progression of stenosis since the prior study. Moderate central, bilateral subarticular recess and RIGHT foraminal stenosis. Mild LEFT foraminal stenosis. L3-L4: Progression of central and foraminal stenosis. Complete effacement of CSF and there is a central disc protrusion with osteophytic ridging and severe facet arthritis. Severe central, subarticular recess and moderate foraminal stenosis, LEFT greater than RIGHT. L4-L5: Diffuse osteophytic ridging. Large posterior laminectomy defect. Osteophytic ridging encroaching upon the foramina. Moderate bilateral foraminal stenosis. L5-S1: Mild bilateral facet arthritis. Mild foraminal stenosis. Normal paravertebral soft tissues. MR/MR lumbar spine wo con* [id number] IMPRESSION: 1. Status post posterior lumbar fusion at L4-5 with interbody spacer. Fusion i s new since 02/16/2021. 2. Progression of stenosis at the L3-4 level since 2020. There is now severe c entral, subarticular recess and moderate foraminal stenosis, LEFT greater than RIGHT at L3-4. Central disc protrusion is also present at L3-4. 3. Moderate bilateral foraminal stenosis at L4-5 is unchanged. 4. Moderate central, bilateral subarticular recess and RIGHT foraminal stenosi s at L2-3. Small central disc protrusion. Stenosis has progressed since the [place] or study. 5. Mild central, subarticular recess and bilateral foraminal stenosis at L1-2.
--- NOTE | 2025-09-10 08:54 | MR_ITS ---
WS: [id number] MRI THORACIC SPINE noncontrast HISTORY: POST LAMINECTOMY SYNDROME, chronic mid back pain. COMPARISON: None available. TECHNIQUE: Multiplanar sequences are performed in sagittal and axial planes. Small central disc protrusion at C5-6. Very slight increase in the thoracic kyphosis. Mild curvature or scoliosis thoracic spine. Normal signal within the cord. The conus tapers normally and ends at T12. No acute fractures or marrow edema. T9 vertebral body hemangioma. T1-2: LEFT paracentral disc osteophyte with mild contact on the thoracic cord. Moderate LEFT foraminal stenosis and facet arthritis. T2-3: Diffuse osteophytic ridging and disc bulging with marked facet arthritis. Mild central with moderate bilateral foraminal stenosis, LEFT greater than RIGHT. T3-4: Diffuse osteophytic ridging and facet arthritis. Mild central and foraminal stenosis. T4-5: Mild osteophytic ridging with moderate facet arthritis. Mild central and bilateral foraminal stenosis. T5-6: Diffuse osteophytic ridging and marked facet arthritis. Mild central with moderate foraminal stenosis. T6-7: Mild osteophytic ridging with facet arthritis. Moderate bilateral foraminal stenosis. T7-8: Diffuse osteophytic ridging and facet arthritis. Mild central and moderate foraminal stenosis. T8-9: No central stenosis. Facet arthritis and moderate foraminal stenosis. T9-10: Severe facet joint arthritis encroaching into the thecal sac. Diffuse osteophytic ridging. Moderate central with severe bilateral foraminal stenosis. T10-11: Marked facet arthritis encroaching into the thecal sac. Moderate central and severe foraminal stenosis. T11-12: Facet joint arthritis encroaching into the thecal sac, greatest on the LEFT. Mild central foraminal stenosis. T12-L1: Facet joint arthritis encroaching upon the thecal sac. Mild central and bilateral foraminal stenosis. Paravertebral soft tissues are normal. MR/MR thoracic spin wo con* [id number] IMPRESSION: 1. Multilevel foraminal stenoses and facet joint arthritis as described above. 2. No signal abnormality within the cord. 3. T9-10: Moderate central with severe bilateral foraminal stenosis. 4. T10-11: Moderate central and severe foraminal stenosis. 5. Multiple levels where there is mild central and moderate foraminal stenosis including T2-3, T5-6, T7-8.
== END 2025-09-10 08:36 | disposition home or self-care (01) ==
LOC: RAD 08:35
PROVIDERS: PCP Nurse Practitioner Family; Visit Provider Student in an Organized Health Care Education/Training Program
DX: M96.1 Postlaminectomy syndrome, not elsewhere classified (principal); M48.04 Spinal stenosis, thoracic region; M25.78 Osteophyte, vertebrae; M47.814 Spondylosis without myelopathy or radiculopathy, thoracic region; M47.897 Other spondylosis, lumbosacral region; M47.817 Spondylosis without myelopathy or radiculopathy, lumbosacral region; M48.05 Spinal stenosis, thoracolumbar region
CPT/HCPCS: 72146; 72148